=== PATIENT | male | born 1990 | race Hispanic/Latino ===

== ENCOUNTER 2017-11-15 01:24 | Emergency (ER) | payer OTHER ==
[2017-11-15 01:25] VITALS: BMI 23.0
[2017-11-15 01:37] VITALS: O2SAT 100
[2017-11-15] MEDS ORDERED: Sodium Chloride 0.9% 1,000 ML ONE (02:07)
[2017-11-15] MEDS ORDERED: Sodium Chloride 0.9% 1,000 ML IV ONE (02:10)
[2017-11-15 02:32] LABS: BASO % 0.3 % (0.0-2.0); EOS % 0.1 % (0.0-4.0); HEMOGLOBIN 16.8 g/dL (12.0-18.0); LYMPH # 0.3 K/uL (1.0-4.3); LYMPH % 3.3 % (20.0-40.0); MEAN CELL VOLUME 89.4 fL (80.0-94.0); MEAN CORPUSCULAR HEMOGLOBIN 30.3 pg (27.0-31.0); MEAN CORPUSCULAR HGB CONC 33.9 g/dL (33.0-37.0); MEAN PLATELET VOLUME 10.4 fL (7.2-11.7); MONO # 0.5 K/uL (0.0-0.8); MONO % 4.9 % (0.0-10.0); NEUT # 9.5 K/uL (1.8-7.0); NEUT % 91.4 % (50.0-75.0); PLATELET COUNT 213 K/uL (130-400); RBC 5.53 Mil/uL (4.40-5.90); WHITE BLOOD COUNT 10.4 K/uL (4.8-10.8)
[2017-11-15 02:36] LABS: ALBUMIN 4.9 g/dL (3.5-5.0); ALT/SGPT 35 U/L (21-72); AST/SGOT 33 U/L (17-59); BLOOD UREA NITROGEN 24 mg/dL (9-20); CALCIUM 9.4 mg/dl (8.6-10.4); GFR AFRICAN-AMERICAN > 60; GFR NON-AFRICAN AMERICAN > 60; LIPASE 118 U/L (23-300)
[2017-11-15 02:57] LABS: ALB/GLOB RATIO 1.4 (1.0-2.1)
[2017-11-15 03:02] LABS: BANDS 2 % (0-2); LYMPHOCYTE 2 % (20-40); MONOCYTE 2 % (0-10); NEUTROPHIL 93 % (50-75); PLATELET ESTIMATE NORMAL (NORMAL); REACTIVE LYMPHOCYTES 1 % (0-0); TOTAL CELLS COUNTED 100
--- NOTE | 2017-11-15 04:11 | C.PDOC ---
History Of Present Illness 27 year old male presents to the ER a complaint of diarrhea and vomiting several times today after drinking a questionable smoothie. Denies fever, sick contact, or URI symptoms. Time Seen by Provider: 11/15/17 01:41 Chief Complaint (Nursing): Abdominal Pain History Per: Patient History/Exam Limitations: no limitations Onset/Duration Of Symptoms: Hrs Current Symptoms Are (Timing): Still Present Context: Food Associated Symptoms: Nausea, Vomiting, Diarrhea. denies: Fever, Chills, Other ( URI symptoms) Exacerbating Factors: None Alleviating Factors: None Recent travel outside of the [place]: No Past Medical History Reviewed: Historical Data, Nursing Documentation, Vital Signs Vital Signs: Last Vital Signs Temp 99.1 F 11/15/17 04:35 Pulse 96 H 11/15/17 04:35 Resp 14 11/15/17 04:35 BP 131/73 11/15/17 04:35 Pulse Ox 100 11/15/17 04:35 - Medical History PMH: Anxiety, Bipolar Disorder, Depression Family History: States: Unknown Family Hx - Social History Hx Tobacco Use: Yes Hx Alcohol Use: Yes Hx Substance Use: Yes (Cocaine, Marijuana) - Immunization History Hx Tetanus Toxoid Vaccination: No Hx Influenza Vaccination: No Hx Pneumococcal Vaccination: No Review Of Systems Constitutional: Negative for: Fever, Chills ENT: Negative for: Ear Pain, Ear Discharge, Throat Pain Respiratory: Negative for: Cough, Sputum, Wheezing Gastrointestinal: Positive for: Vomiting, Diarrhea Physical Exam - Physical Exam Appears: Non-toxic Skin: Warm, Dry, Pale Head: Atraumatic, Normacephalic Eye(s): bilateral: Normal Inspection Oral Mucosa: Moist Throat: Normal, No Erythema, No Exudate Neck: Normal, Supple Chest: Symmetrical, No Tenderness Cardiovascular: Rhythm Regular Respiratory: Normal Breath Sounds, No Rales, No Rhonchi, No Wheezing Gastrointestinal/Abdominal: Soft, Tenderness (Very minimal epigastric), No Guarding, No Rebound Neurological/Psych: Oriented x3, Normal Speech ED Course And Treatment - Laboratory Results Result Diagrams: 11/15/17 02:27 11/15/17 02:27 O2 Sat by Pulse Oximetry: 100 (Room air) Pulse Ox Interpretation: Normal Progress Note: Blood work ordered. Pepcid, IV fluids, and zofran administered. Reevaluation Time: 04:15 Reassessment Condition: Improved (Pt tolerated PO fluids, in NAD, VSS. Abd is soft NT. Pt rrports improvement of sx) Disposition Counseled Patient/Family Regarding: Diagnosis, Need For Followup, Rx Given - Disposition Referrals: 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 - Scribe Statement The provider has reviewed the documentation as recorded by the Scribe Blayne Gamez All medical record entries made by the Steffiibe were at my direction and personally dictated by me. I have reviewed the chart and agree that the record accurately reflects my personal performance of the history, physical exam, medical decision making, and the department course for this patient. I have also personally directed, reviewed, and agree with the discharge instructions and disposition.
[2017-11-15 04:35] VITALS: BP 131/73; PULSE 96; RESP 14; TEMP 99.1
== END 2017-11-15 04:38 | disposition home or self-care (01) ==
LOC: C.ER 01:24
DX: R11.10 Vomiting, unspecified (principal); K52.9 Noninfective gastroenteritis and colitis, unspecified; Z87.891 Personal history of nicotine dependence
CPT/HCPCS: 80053; 83690; 85025; 96374; 96375; 99284; J2405; J7040

== ENCOUNTER 2017-12-10 19:25 | Emergency (ER) | payer OTHER ==
[2017-12-10 19:26] VITALS: BMI 23.0
[2017-12-10] MEDS ORDERED: Sodium Chloride 0.9% 1,000 ML IV ONE (21:25)
--- NOTE | 2017-12-10 21:26 | C.PDOC ---
History Of Present Illness 27yo male, presents to ED with complaints of constant burning sensation and abdominal pain since 1400 today. Patient reports he has had 7x episodes of vomiting with cloudy, yellow and non-bloody emesis; also reports constipation. Patient states he has had diarrhea for the past 2 days and was evaluated by Dr. Perez who instructed patient to get blood tests and stool studies. Patient denies eating any food today due to loss of appetite. He reports chills but denies any fever, sore throat, nasal congestion. Of note, patient states he took 5 shots of vodka before the burning sensations; also reports he drinks 5 drinks per day. Time Seen by Provider: 12/10/17 21:06 Chief Complaint (Nursing): Abdominal Pain History Per: Patient History/Exam Limitations: no limitations Onset/Duration Of Symptoms: Days Current Symptoms Are (Timing): Still Present Associated Symptoms: Chills, Nausea, Vomiting, Loss Of Appetite. denies: Fever Past Medical History Reviewed: Historical Data, Nursing Documentation, Vital Signs Vital Signs: Last Vital Signs Temp 98.0 F 12/10/17 22:27 Pulse 96 H 12/10/17 22:27 Resp 18 12/10/17 22:27 BP 138/81 12/10/17 22:27 Pulse Ox 96 12/10/17 22:27 - Medical History PMH: Anxiety, Bipolar Disorder, Depression Surgical History: No Surg Hx Family History: States: Unknown Family Hx - Social History Hx Tobacco Use: Yes Hx Alcohol Use: Yes Hx Substance Use: No (Cocaine, Marijuana) - Immunization History Hx Tetanus Toxoid Vaccination: No Hx Influenza Vaccination: No Hx Pneumococcal Vaccination: No Review Of Systems Except As Marked, All Systems Reviewed And Found Negative. Constitutional: Positive for: Chills. Negative for: Fever ENT: Negative for: Throat Pain Cardiovascular: Negative for: Chest Pain, Palpitations Respiratory: Negative for: Shortness of Breath Gastrointestinal: Positive for: Nausea, Vomiting, Abdominal Pain Physical Exam - Physical Exam Appears: Non-toxic, No Acute Distress Skin: Normal Color, Warm, Dry Head: Atraumatic, Normacephalic Eye(s): bilateral: Normal Inspection Neck: Normal ROM, Supple Chest: Symmetrical Cardiovascular: Rhythm Regular Respiratory: Normal Breath Sounds Gastrointestinal/Abdominal: Bowel Sounds (good), Soft, Tenderness (epigastric tenderness, left upper quadrant tenderness) Back: Normal Inspection Extremity: Normal ROM, No Pedal Edema Neurological/Psych: Oriented x3 ED Course And Treatment - Laboratory Results Result Diagrams: 12/10/17 22:09 12/10/17 22:09 O2 Sat by Pulse Oximetry: 98 (RA) Pulse Ox Interpretation: Normal Medical Decision Making Medical Decision Making: Impression: Abdominal pain Plan: -- Labs -- Toradol 30 mg IVP -- Zofran 4mg IVP -- Protonix 40 mg IVP -- IV Fluids -- XR Obstructive series abd. pain - patient improved and no further symptoms. Obs. series demonstrates nsgp. Will discharge home to follow up with pmd in 2 days. Disposition Counseled Patient/Family Regarding: Studies Performed, Diagnosis, Need For Followup, Rx Given - Disposition Referrals: Silverio Perez MD [Staff Provider] - Disposition: HOME/ ROUTINE Disposition Time: 23:00 Condition: IMPROVED Additional Instructions: follow up with your doctor tomorrow call to make an appointment take medications as prescribed return to ER if symptoms worsens or progress stop alcohol shots Prescriptions: Famotidine [Pepcid] 20 mg PO BID #20 tab Ondansetron ODT [Zofran ODT] 4 mg PO TID PRN #12 odt PRN Reason: Nausea/Vomiting Instructions: Abdominal Pain (ED), Gastritis (ED) Forms: [facility] (Armenian), General Discharge Instructions, Work Excuse - Clinical Impression Clinical Impression: Abdominal pain - Scribe Statement The provider has reviewed the documentation as recorded by the Scribe (Zoila Mcintosh) Provider Attestation: All medical record entries made by the Scribe were at my direction and personally dictated by me. I have reviewed the chart and agree that the record accurately reflects my personal performance of the history, physical exam, medical decision making, and the department course for this patient. I have also personally directed, reviewed, and agree with the discharge instructions and disposition.
[2017-12-10] MEDS ORDERED: Sodium Chloride 0.9% 1,000 ML ONE (21:43)
[2017-12-10 22:16] LABS: BASO % 0.2 % (0.0-2.0); HEMOGLOBIN 15.2 g/dL (12.0-18.0); LYMPH # 0.5 K/uL (1.0-4.3); LYMPH % 7.3 % (20.0-40.0); MEAN CELL VOLUME 89.2 fL (80.0-94.0); MEAN CORPUSCULAR HGB CONC 34.8 g/dL (33.0-37.0); MEAN PLATELET VOLUME 9.5 fL (7.2-11.7); MONO # 0.5 K/uL (0.0-0.8); MONO % 6.7 % (0.0-10.0); NEUT # 6.2 K/uL (1.8-7.0); NEUT % 85.8 % (50.0-75.0); PLATELET COUNT 212 K/uL (130-400); RBC 4.89 Mil/uL (4.40-5.90); RED CELL DISTRIBUTION WIDTH 13.3 % (11.5-14.5); WHITE BLOOD COUNT 7.2 K/uL (4.8-10.8)
[2017-12-10 22:27] VITALS: BP 138/81; PULSE 96; RESP 18; TEMP 98
[2017-12-10 22:27] LABS: ALB/GLOB RATIO 1.3 (1.0-2.1); ALBUMIN 4.7 g/dL (3.5-5.0); ALT/SGPT 48 U/L (21-72); AST/SGOT 38 U/L (17-59); BLOOD UREA NITROGEN 13 mg/dL (9-20); CALCIUM 9.2 mg/dl (8.6-10.4); GFR AFRICAN-AMERICAN > 60; GFR NON-AFRICAN AMERICAN > 60; LIPASE 164 U/L (23-300)
[2017-12-10 23:00] VITALS: O2SAT 98
[2017-12-10 23:11] LABS: LYMPHOCYTE 6 % (20-40); MONOCYTE 5 % (0-10); NEUTROPHIL 89 % (50-75); PLATELET ESTIMATE NORMAL (NORMAL); TOTAL CELLS COUNTED 100
--- NOTE | 2017-12-11 10:31 | RAD ---
PROCEDURE: Radiographs of the chest and abdomen (obstructive series) HISTORY: abd pain COMPARISON: None available. TECHNIQUE: AP radiograph of the chest, with upright and supine radiographs of the abdomen. FINDINGS: CHEST: Heart size appears within normal limits. No focal consolidation. No pleural effusion. No pneumothorax. Please note that chest x-ray has limited sensitivity for the detection of pulmonary masses. ABDOMEN AND PELVIS: Nonobstructive bowel gas pattern. No definite free air. Mild scoliosis. IMPRESSION: No acute findings identified.
== END 2017-12-10 23:05 | disposition home or self-care (01) ==
LOC: C.ER 19:25
DX: R10.13 Epigastric pain (principal)
CPT/HCPCS: 74022; 80053; 83690; 85025; 96361; 96374; 96375; 99284; C9113; J1885; J2405; J7040

== ENCOUNTER 2018-04-11 12:22 | Emergency (ER) | payer OTHER ==
[2018-04-11 12:22] VITALS: BMI 23.0
[2018-04-11] MEDS ORDERED: Iohexol 240 (50 ml) ONE (13:27)
[2018-04-11] MEDS ORDERED: Iohexol 240 (50 ml) PO STA (13:35)
[2018-04-11] MEDS ORDERED: Sodium Chloride 0.9% 500 ML IV ONE (13:35)
[2018-04-11 13:50] LABS: BASO % 0.3 % (0.0-2.0); EOS # 0.1 K/uL (0.0-0.7); EOS % 0.6 % (0.0-4.0); HEMOGLOBIN 14.5 g/dL (12.0-18.0); LYMPH # 1.5 K/uL (1.0-4.3); LYMPH % 17.5 % (20.0-40.0); MEAN CELL VOLUME 89.4 fL (80.0-94.0); MEAN CORPUSCULAR HEMOGLOBIN 31.1 pg (27.0-31.0); MEAN CORPUSCULAR HGB CONC 34.8 g/dL (33.0-37.0); MEAN PLATELET VOLUME 9.4 fL (7.2-11.7); MONO # 0.7 K/uL (0.0-0.8); MONO % 8.6 % (0.0-10.0); NEUT # 6.2 K/uL (1.8-7.0); NRBC % 0.1 % (0.0-2.0); RBC 4.67 Mil/uL (4.40-5.90); RED CELL DISTRIBUTION WIDTH 14.3 % (11.5-14.5); WHITE BLOOD COUNT 8.4 K/uL (4.8-10.8)
[2018-04-11 14:04] LABS: ALB/GLOB RATIO 1.3 (1.0-2.1); ALBUMIN 4.2 g/dL (3.5-5.0); ALT/SGPT 10 U/L (21-72); AST/SGOT 23 U/L (17-59); BLOOD UREA NITROGEN 11 mg/dL (9-20); CALCIUM 9.4 mg/dl (8.6-10.4); GFR AFRICAN-AMERICAN > 60; GFR NON-AFRICAN AMERICAN > 60; LIPASE 83 U/L (23-300)
[2018-04-11] MEDS ORDERED: Iodixanol 320 MG/ML 100 ML BOTTLE IV ONE (14:44)
[2018-04-11 15:09] LABS: URINE BILIRUBIN NEGATIVE (NEGATIVE); URINE BLOOD NEGATIVE (NEGATIVE); URINE CLARITY Clear (Clear); URINE COLOR Colorless (YELLOW); URINE GLUCOSE (UA) NORMAL (Normal); URINE LEUKOCYTE ESTERASE NEG Leu/uL (Negative); URINE PROTEIN NEGATIVE (NEGATIVE); URINE UROBILINOGEN NORMAL mg/dL (0.2-1.0)
[2018-04-11 15:27] LABS: BARBITURATES, UR NEGATIVE (NEGATIVE); BENZODIAZEPINES, UR NEGATIVE (NEGATIVE); OPIATES, UR NEGATIVE (NEGATIVE); PHENCYCLIDINE, UR NEGATIVE (NEGATIVE)
[2018-04-11 15:49] VITALS: RESP 18; O2SAT 100
--- NOTE | 2018-04-11 15:59 | CT ---
PROCEDURE: CT Abdomen and Pelvis with contrast HISTORY: Abdominal pain COMPARISON: None. TECHNIQUE: CT scan of the abdomen and pelvis was performed after administration of intravenous contrast. Oral contrast was administered. Coronal and sagittal reformatted images were obtained. Contrast dose: 100 mL Visipaque Radiation dose: Total exam DLP = 384.89 mGy-cm. This CT exam was performed using one or more of the following dose reduction techniques: Automated exposure control, adjustment of the mA and/or kV according to patient size, and/or use of iterative reconstruction technique. FINDINGS: LOWER THORAX: The visualized lungs are clear. LIVER: There is mild hepatomegaly and diffuse fatty infiltration in the liver. No gross lesion or ductal dilatation. GALLBLADDER AND BILE DUCTS: No calcified gallstones. PANCREAS: Normal in size with homogeneous enhancement. No gross lesion or ductal dilatation. SPLEEN: Normal in size and appearance. ADRENALS: No discrete nodules. KIDNEYS AND URETERS: Normal in size with homogeneous enhancement. No hydronephrosis. No solid mass. VASCULATURE: No aortic aneurysm. BOWEL: The small bowel loops are normal in caliber. The colon is unremarkable. No bowel dilatation or obstruction. APPENDIX: Normal appendix. PERITONEUM: No free fluid. No free air. LYMPH NODES: There are enlarged bilateral inguinal lymph nodes, larger on the right. No intra-abdominal or pelvic lymphadenopathy. BLADDER: Grossly normal in appearance. REPRODUCTIVE: The prostate gland is normal in size. BONES: No acute fracture. Redemonstration of chronic bilateral pars interarticularis defects with grade 2 listhesis of L5 on S1 and severe desiccation of the L5-S1 disc. OTHER FINDINGS: There is mild skin thickening and subcutaneous inflammatory changes in the right groin. IMPRESSION: 1. No evidence of inguinal hernia. Findings are most compatible with cellulitis in the right inguinal region and reactive/infectious/inflammatory right inguinal lymphadenopathy. 2. Mild hepatomegaly and fatty liver.
[2018-04-11] MEDS ORDERED: Clindamycin 300 MG in Sodium Chloride 0.9% 50 ML IVPB STA (16:31)
--- NOTE | 2018-04-11 16:36 | C.PDOC ---
History Of Present Illness 28-year-old male, presents to the emergency department with complaints of pain and swelling to right inguinal area, onset two days ago, associated with itching to site. No nausea/vomiting, dysuria, hematuria, pain to testicles or any other associated symptoms. No other complaints at this time. Time Seen by Provider: 04/11/18 13:06 Chief Complaint (Nursing): Abnormal Skin Integrity History Per: Patient History/Exam Limitations: no limitations Onset/Duration Of Symptoms: Days Current Symptoms Are (Timing): Still Present Past Medical History Reviewed: Historical Data, Nursing Documentation, Vital Signs Vital Signs: Last Vital Signs Temp 99.1 F 04/11/18 17:25 Pulse 83 04/11/18 17:25 Resp 18 04/11/18 17:25 BP 113/75 04/11/18 17:25 Pulse Ox 100 04/11/18 17:25 - Medical History PMH: Anxiety, Bipolar Disorder, Depression Family History: States: No Known Family Hx - Social History Hx Tobacco Use: Yes Hx Alcohol Use: Yes Hx Substance Use: Yes (Cocaine, Marijuana) - Immunization History Hx Tetanus Toxoid Vaccination: No Hx Influenza Vaccination: No Hx Pneumococcal Vaccination: No Review Of Systems Constitutional: Negative for: Fever, Chills Gastrointestinal: Negative for: Nausea, Vomiting, Abdominal Pain Genitourinary: Positive for: Other (inguinal pain). Negative for: Dysuria, Frequency, Incontinence, Rash Musculoskeletal: Negative for: Back Pain Skin: Negative for: Rash Neurological: Negative for: Weakness, Numbness Physical Exam - Physical Exam Appears: Non-toxic, No Acute Distress Skin: Warm, Dry, No Rash Head: Normacephalic Nose: Normal Oral Mucosa: Moist Lips: Normal Appearing Neck: Normal ROM Chest: Symmetrical Cardiovascular: Rhythm Regular, No Murmur Respiratory: Normal Breath Sounds, No Accessory Muscle Use Gastrointestinal/Abdominal: Soft, No Tenderness Male Genital: Other (adenopathy B/L inguinal area, right greater than left associated with tenderness, redness and swelling on right) Extremity: Normal ROM, No Deformity, No Swelling Neurological/Psych: Oriented x3, Normal Speech ED Course And Treatment - Laboratory Results Result Diagrams: 04/11/18 13:47 04/11/18 13:47 O2 Sat by Pulse Oximetry: 100 (RA) Pulse Ox Interpretation: Normal - CT Scan/US CT ABD/PEL Other Rad Studies (CT/US): Read By Radiologist, Radiology Report Reviewed CT/US Interpretation: Accession No. : [id number]. Patient Name / ID : HENRY ADAMS / [id number]. Exam Date : 04/11/2018 15:26:01 ( Addendum_Approved ) . Study Comment : Sex / Age : M / 28Y. Creator : Carrie Ramirez. Dictator : Karlee Mauricio MD. Infrastructure Developer : Medical Facilities Section Director : Karlee Mauricio MD. Approver2 : Report Date : 04/11/2018 15:35:21. My Comment : . ADDENDUM: IMPRESSION: 1. No evidence of inguinal hernia. Findings are most compatible with cellulitis in the right inguinal region and reactive/infectious/ inflammatory right inguinal lymphadenopathy. No drainable abscess or fluid collection. 2. Mild hepatomegaly and fatty liver. [ Addendum Report Added by Karlee Mauricio MD at 04/11/2018 16:00:27 ]. PROCEDURE: CT Abdomen and Pelvis with contrast. HISTORY: Abdominal pain. COMPARISON: None. TECHNIQUE : CT scan of the abdomen and pelvis was performed after administration of intravenous contrast. Oral contrast was administered. Coronal and sagittal reformatted images were obtained. Contrast dose: 100 mL Visipaque. Radiation dose: Total exam DLP = 384.89 mGy-cm. This CT exam was performed using one or more of the following dose reduction techniques: Automated exposure control, adjustment of the mA and/or kV according to patient size, and/or use of iterative reconstruction technique. FINDINGS: LOWER THORAX: The visualized lungs are clear. LIVER: There is mild hepatomegaly and diffuse fatty infiltration in the liver. No gross lesion or ductal dilatation. GALLBLADDER AND BILE DUCTS: No calcified gallstones. PANCREAS: Normal in size with homogeneous enhancement. No gross lesion or ductal dilatation. SPLEEN: Normal in size and appearance. ADRENALS: No discrete nodules. KIDNEYS AND URETERS: Normal in size with homogeneous enhancement. No hydronephrosis. No solid mass. VASCULATURE: No aortic aneurysm. BOWEL: The small bowel loops are normal in caliber. The colon is unremarkable. No bowel dilatation or obstruction. APPENDIX: Normal appendix. PERITONEUM: No free fluid. No free air. LYMPH NODES: There are enlarged bilateral inguinal lymph nodes, larger on the right. No intra-abdominal or pelvic lymphadenopathy. BLADDER: Grossly normal in appearance. REPRODUCTIVE: The prostate gland is normal in size. BONES: No acute fracture. Redemonstration of chronic bilateral pars interarticularis defects with grade 2 listhesis of L5 on S1 and severe desiccation of the L5-S1 disc. OTHER FINDINGS: There is mild skin thickening and subcutaneous inflammatory changes in the right groin. IMPRESSION: 1. No evidence of inguinal hernia. Findings are most compatible with cellulitis in the right inguinal region and reactive/infectious/inflammatory right inguinal lymphadenopathy. 2. Mild hepatomegaly and fatty liver. Medical Decision Making Medical Decision Making: Plan: * CT Abd/Pel (r/o Abscess vs Hernia) * Bloodwork * Blood culture * Clindamycin, IVF * UA * Reassess and Disposition Disposition Counseled Patient/Family Regarding: Diagnosis, Need For Followup, Rx Given - Disposition Disposition: HOME/ ROUTINE Disposition Time: 16:34 Condition: STABLE Additional Instructions: Follow up with your doctor in 2-3 days. Prescriptions: Clindamycin [Cleocin] 1 cap PO QID #30 cap Instructions: Cellulitis (Skin Infection), Adult (DC) Forms: General Discharge Instructions, [facility] (Greek), Work Excuse - POA Present On Arrival: None - Clinical Impression Clinical Impression: Cellulitis - Scribe Statement The provider has reviewed the documentation as recorded by the Scribe (Yasmin Valle) All medical record entries made by the Scribe were at my direction and personally dictated by me. I have reviewed the chart and agree that the record accurately reflects my personal performance of the history, physical exam, medical decision making, and the department course for this patient. I have also personally directed, reviewed, and agree with the discharge instructions and disposition.
[2018-04-11] MEDS ORDERED: Clindamycin 600mg/50ml NS 0 MG/0 ML BAG IVPB ONE (16:38)
[2018-04-11] MEDS ORDERED: Clindamycin 300 MG in Sodium Chloride 0.9% 50 ML IVPB ONE (17:00)
[2018-04-11 17:26] VITALS: BP 113/75; PULSE 83; TEMP 99.1
== END 2018-04-11 17:43 | disposition home or self-care (01) ==
LOC: C.ER 12:22
DX: L03.314 Cellulitis of groin (principal)
CPT/HCPCS: 74177; 80053; 80324; 80345; 80346; 80349; 80353; 80358; 80361; 81001; 83690; 83992; 85025; 87040; 96361; 96365; 99284; J7040; Q9966; Q9967

== ENCOUNTER 2019-02-10 11:39 | Emergency (ER) | payer OTHER ==
[2019-02-10 11:39] VITALS: BMI 23.0
[2019-02-10 11:50] VITALS: RESP 18
[2019-02-10] MEDS ORDERED: Oxycodone/Acetaminophen 5/325 mg Tab PO STA (14:40)
[2019-02-10] MEDS ORDERED: Lidocaine 5% Oint(35 gm) TOP STA (14:41)
[2019-02-10] MEDS ORDERED: Oxycodone/Acetaminophen 5/325 mg Tab ONE (14:44)
--- NOTE | 2019-02-10 15:30 | C.PDOC ---
History Of Present Illness 28 year old male presents to the ED for evaluation of pain and swelling to his right 4th finger for three days. Patient states he was in the gym and used a punching bag while wearing the ring on his finger. Upon waking up the next day, patient found his finger was swollen and was unable to talk off his ring. Patient denies extremity numbness/weakness. Time Seen by Provider: 02/10/19 11:59 Chief Complaint (Nursing): Finger,Hand,&Wrist History Per: Patient History/Exam Limitations: no limitations Onset/Duration Of Symptoms: Days (3) Current Symptoms Are (Timing): Still Present Quality: "Pain" Additional History Per: Patient Past Medical History Reviewed: Historical Data, Nursing Documentation, Vital Signs Vital Signs: Last Vital Signs Temp 98.3 F 02/10/19 11:48 Pulse 79 02/10/19 11:48 Resp 18 02/10/19 11:48 BP 133/89 02/10/19 11:48 Pulse Ox 98 02/10/19 11:48 - Medical History PMH: Anxiety, Bipolar Disorder, Depression Surgical History: No Surg Hx Family History: States: Unknown Family Hx - Social History Hx Tobacco Use: Yes Hx Alcohol Use: No Hx Substance Use: No - Immunization History Hx Tetanus Toxoid Vaccination: No Hx Influenza Vaccination: No Hx Pneumococcal Vaccination: No Review Of Systems Musculoskeletal: Positive for: Other (right 4th finger pain and swelling ) Neurological: Negative for: Weakness, Numbness Physical Exam - Physical Exam Appears: Non-toxic, No Acute Distress Skin: Warm, Dry Extremity: Capillary Refill (less than 2 seconds ), Other (massive silver ring to right 4th finger that is covering entire proximal phalanx, with swelling and erythema ) Neurological/Psych: Oriented x3, Normal Speech, Normal Cognition, Normal Sensation ED Course And Treatment O2 Sat by Pulse Oximetry: 98 (on RA ) Pulse Ox Interpretation: Normal Progress Note: Percocet PO and Lidocaine 5% TOP administered for pain. Ring was removed using ring cutter by RN after multiple attempts. On re-evaluation patient feels better, finer with FROM, no open wounds. Patient is stable to be d/c home. 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 - Scribe Statement The provider has reviewed the documentation as recorded by the Scribe (Ruthy Mendez) All medical record entries made by the Scribe were at my direction and personally dictated by me. I have reviewed the chart and agree that the record accurately reflects my personal performance of the history, physical exam, medical decision making, and the department course for this patient. I have also personally directed, reviewed, and agree with the discharge instructions and disposition.
[2019-02-10] MEDS ORDERED: Bacitracin 500 Units/gm Oint Foilpak UD ONE (16:31)
[2019-02-10 16:54] VITALS: BP 112/80; PULSE 82; TEMP 97.6; O2SAT 99
== END 2019-02-10 16:54 | disposition home or self-care (01) ==
LOC: C.ER 11:39
DX: S60.444A External constriction of right ring finger, initial encounter (principal); W49.04XA Ring or other jewelry causing external constriction, initial encounter